=== PATIENT | female | born 1970 | race Caucasian/White ===

== ENCOUNTER 2019-01-05 08:18 | Emergency (ER) | payer BC ==
[~2019-01-05] VITALS: Ht 167.6 cm; Wt 76.9 kg
[2019-01-05] MEDS ORDERED: VICODIN HP 10-1 EAC1 (08:43)
[2019-01-05] MEDS ORDERED: VENTOLIN HFA18 GM PO (08:44)
[2019-01-05] MEDS ORDERED: AZITHROMYCIN250 MG PO (08:45)
[2019-01-05] MEDS ORDERED: TESSALON PERLE100 MG PO (08:49)
--- NOTE | 2019-01-05 09:16 | Diagnostic Imaging Report ---
EXAM: PA and lateral views of the chest. COMPARISON: None CLINICAL HISTORY: ^[id number] ^[id number] FINDINGS: Lines/tubes: None. Lungs: The lungs are well inflated and clear. Pleura: There is no pleural effusion or pneumothorax. Heart and mediastinum: The cardiomediastinal silhouette is normal. Bones and soft tissues: No acute bony abnormalities. IMPRESSION: No acute cardiopulmonary abnormalities. Signed by: Dr. Sheridan Madrigal M.D. on 01/05/2019 9:12 AM
[2019-01-05 09:27] VITALS: BP 119/73
== END 2019-01-05 09:34 | disposition home or self-care (01) ==
LOC: FSED 08:18
DX: R05 Cough (principal); J20.9 Acute bronchitis, unspecified
CPT/HCPCS: 71046; 87400; 99283